=== PATIENT | female | born 1960 | race Caucasian/White ===

== ENCOUNTER 2016-11-10 20:27 | Emergency (ER) | payer BC, MEDICAID ==
--- NOTE | 2016-11-10 21:08 | EDM.PDOC ---
ED HPI GENERAL MEDICAL PROBLEM - General Chief Complaint: General Stated Complaint: BLEEDING FROM INCISION SITE Time Seen by Provider: 11/10/16 20:50 Source of Information: Reports: Patient History Limitations: Reports: Other (Unable to access her records at [facility]) - History of Present Illness INITIAL COMMENTS - FREE TEXT/NARRATIVE: 56 yo female with AML had a port placed to her R upper chest today @ [facility]. She got some platelets before placement due to thrombocytopenia. She is scheduled to return tomorrow morning for more platlets and blood. This evening she noted some bleeding from the site so was advised to come here for eval. Onset: Today Onset Date: 11/10/16 Onset Time: 19:30 Duration: Minutes: Location: Reports: Chest Severity: Mild Improves with: Reports: None Worsens with: Reports: None Context: Reports: Other (port placed for AML, has thrombocytopenia.) Associated Symptoms: Reports: No Other Symptoms Treatments AWNING FINISHER: Reports: Other (see below) (none) ED ROS GENERAL - Review of Systems Review Of Systems: See Below Constitutional: Reports: No Symptoms Skin: Reports: Other (minor bleeding from around the port.) Neurological: Reports: No Symptoms ED EXAM, GENERAL - Physical Exam Exam: See Below Exam Limited By: No Limitations General Appearance: Alert, WD/WN, No Apparent Distress Neurological: Alert, Oriented, CN II-XII Intact, Normal Cognition, No Motor/ Sensory Deficits Psychiatric: Normal Affect, Normal Mood Skin Exam: Warm, Dry, Pallor, Other (Some minor oozing of blood from around the port site. Bleeding is not active. No hematoma noted. ) Course - Vital Signs Text/Narrative:: Discussed with interventional radiology at [facility]. [place] not bleeding enough to warrant platelets tonight. Advises she keep her appt for tomorrow. 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
[2016-11-10 21:41] VITALS: BP 138/76
== END 2016-11-10 21:45 | disposition home or self-care (01) ==
LOC: FB.ED 20:27
DX: Z45.2 Encounter for adjustment and management of vascular access device (principal); C92.02 Acute myeloblastic leukemia, in relapse; D69.6 Thrombocytopenia, unspecified
CPT/HCPCS: 99283